=== PATIENT | male | born 1950 | race Caucasian/White ===

== ENCOUNTER 2016-10-02 07:58 | Day surgery (SDC) | payer MEDICARE, OTHER ==
--- NOTE | ~2016-10-02 | EGD ---
EGD REPORT [facility] [address] [place]. [address] NAME: KHLOE LAWSON : 52 STATUS : REG [facility] PAT#: [id number] AGE: 66 ADM/REG DATE : 10/02/16 MR#: [id number] REPORT SERV DATE: 10/02/16 DICTATED BY: AGA BRADSHAW DATE: 10/02/16 REPORT STATUS : Draft TRANSCRIBED BY: [facility] DATE: 10/02/16 Endoscopy Center Patient Name: Khloe Lawson Date of : 1950 Attending MD: AGA BRADSHAW MD Procedure Date No Time: 10/02/2016 Procedure: Colonoscopy Indications: Screening for colorectal malignant neoplasm (last colonoscopy > 10 years ago), Last colonoscopy: May 2003 Referring MD: DIANA BARAJAS MD Medicines: Propofol per Anesthesia Complications: No immediate complications. Estimated blood loss: None. Procedure: Pre-Anesthesia Assessment: - After reviewing the risks and benefits, the patient was deemed in satisfactory condition to undergo the procedure. - Prior to the procedure, a History and Physical was performed, and patient medications and allergies were reviewed. The patient's tolerance of previous anesthesia was also reviewed. The risks and benefits of the procedure and the sedation options and risks were discussed with the patient. All questions were answered, and informed consent was obtained. Prior Anticoagulants: The patient has taken no previous anticoagulant or antiplatelet agents. ASA Grade Assessment: III - A patient with severe systemic disease. After reviewing the risks and benefits, the patient was deemed in satisfactory condition to undergo the procedure. After I obtained informed consent, the scope was passed under direct vision. Throughout the procedure, the patient's blood pressure, pulse, and oxygen saturations were monitored continuously. The CF [id number] was introduced through the anus and advanced to the cecum, identified by appendiceal orifice and ileocecal valve. The colonoscopy was somewhat difficult due to poor bowel prep with stool present. Successful completion of the procedure was aided by lavage. The ileocecal valve and appendiceal orifice were photographed. The patient tolerated the procedure well. The quality of the bowel preparation was adequate to identify polyps 6 mm and larger in size after copious lavage. The bowel preparation used was polyethylene glycol (PEG). Scope withdrawal time was greater 7 minutes. EGD REPORT [place] [address] [facility] [place]. [address] NAME: KHLOE LAWSON : 52 STATUS : REG [facility]#: [id number] AGE: 66 ADM/REG DATE : 10/02/16 MR#: [id number] REPORT SERV DATE: 10/02/16 DICTATED BY: AGA BRADSHAW DATE: 10/02/16 REPORT STATUS : Draft TRANSCRIBED BY: [facility] DATE: 10/02/16 Findings: The perianal exam was abnormal. Findings include skin tags. Non-bleeding internal hemorrhoids were found during retroflexion and were small and Grade I (internal hemorrhoids that do not prolapse). The exam was otherwise without abnormality. Impression: - Perianal skin tags found on perianal exam. - Non-bleeding internal hemorrhoids. - The examination was otherwise normal. - Chronic constipation. Recommendation: - Discharge patient to home (ambulatory). - Return to previous diet. - Continue present medications. - Repeat colonoscopy in 5 years for screening purposes and because the bowel preparation was suboptimal with an extended bowel prep. - Return to GI clinic PRN. - Patient has a contact number available for emergencies. The signs and symptoms of potential delayed complications were discussed with the patient. Return to normal activities tomorrow. Written discharge instructions were provided to the patient. Procedure Code(s): --- Professional --- G0121, Colorectal cancer screening; colonoscopy on individual not meeting criteria for high risk Diagnosis Code(s): --- Professional --- K64.4, Residual hemorrhoidal skin tags K64.0, First degree hemorrhoids Z12.11, Encounter for screening for malignant neoplasm of colon CPT copyright 2013 [employer]. All rights reserved. The codes documented in this report are preliminary and upon cooling pan tender review may be revised to meet current compliance requirements. AGA BRADSHAW MD 10/02/2016 9:55 AM This report has been signed electronically. Number of Addenda: 0 Note Initiated On: 10/02/2016 9:12 AM EGD REPORT [address] [address] NAME: KHLOE LAWSON : 52 STATUS : REG [facility]#: [id number] AGE: 66 ADM/REG DATE : 10/02/16 MR#: [id number] REPORT SERV DATE: 10/02/16 DICTATED BY: AGA BRADSHAW DATE: 10/02/16 REPORT STATUS : Draft TRANSCRIBED BY: [employer] DATE: 10/02/16 Scope Withdrawal Time 0 hours 7 minutes 41 seconds
[~2016-10-02 07:58] MED LIST: AMB10 PO; ATACAND HCT1 TA1 PO; ATACAND32 MG PO; AVALIDE1 TA1 PO; BAC PO; BP MED PO; CAT1 PO; CIP5 PO; FLEX PO; FLOVENT220 INH; GLUCPH PO; HYZAAR1 TAB PO; KLOR-CON 1010 MEQ PO; LEVAQUDL PO; METHOC750B PO; NORCO1 TA2 PO; NORCO1 TAB PO; NORV10 PO; OXYCOD5CAP PO; PCET PO; PERCOCET1 TA3 PO; PHOSLO PO; POTASSIUM CITRATE PO; PR25 PO; PROAIR HFA INH; PROAIRRESP INH; PROVENT20 INH; PROVHFA INH; PYR200 PO; PYRI PO; PYRIDIUM PO; ROXICET1 TAB PO; SEPTRA DS1 TAB PO; STOOL SOFTEN100 MG PO; TUSSICAPS OR; TUSSIONEX1 ML PO; ZOFRAN4 PO; [UNRECOGNIZED DRUG - REMARK]; [UNRECOGNIZED DRUG - REMARK]
== END 2016-10-02 23:59 | disposition home or self-care (01) ==
LOC: DMU 07:58
PROVIDERS: Internal Medicine Gastroenterology
PROC: 0DJD8ZZ Inspection of Lower Intestinal Tract, Via Natural or Artificial Opening Endoscopic (ICD-10-PCS; principal; 2016-10-02 09:00)
DX: Z12.11 Encounter for screening for malignant neoplasm of colon (principal); K64.0 First degree hemorrhoids; K64.4 Residual hemorrhoidal skin tags; Z88.5 Allergy status to narcotic agent; J45.909 Unspecified asthma, uncomplicated; G47.33 Obstructive sleep apnea (adult) (pediatric); E11.9 Type 2 diabetes mellitus without complications; I10 Essential (primary) hypertension; E78.00 Pure hypercholesterolemia, unspecified; Z79.899 Other long term (current) drug therapy; Z79.891 Long term (current) use of opiate analgesic
CPT/HCPCS: 82962; A9270-GY